=== PATIENT | female | born 1935 | race Caucasian/White ===

== ENCOUNTER 2024-09-06 11:02 | Emergency (ER) | payer MEDICARE, SELFPAY ==
[2024-09-06 11:15] VITALS: BP 124/76; PULSE 61; RESP 16; TEMP 36.4; O2SAT 97; BMI 22.0
--- NOTE | 2024-09-06 11:29 | W.ED.RECABL ---
HPI - Recheck/Abnormal Lab/Rx General: Chief Complaint: Recheck/Abnormal Lab/Rx Stated Complaint: dr sent for inr, medication refill Time Seen by Provider: 09/06/24 11:05 Source: patient Mode of arrival: ambulatory Limitations: no limitations History of Present Illness: 89-year-old female here to have her INR checked states she is visiting from [place] needs to have her INR checked she has not had it checked in 2 weeks and her doctor wanted to come to the ER. She is on Coumadin she has no bleeding complaints has no other complaints this time Related Data Home Medications ?Medication ?Instructions ?Recorded ?Confirmed diltiazem HCl 180 mg capsule,24 180 mg PO QPM 09/06/24 09/06/24 hr,extended release donepezil 5 mg tablet 5 mg PO QPM 09/06/24 09/06/24 warfarin 2 mg tablet See Rx Instructions .Route .COMPLEX 09/06/24 09/06/24 warfarin 4 mg tablet See Rx Instructions .Route .COMPLEX 09/06/24 09/06/24 Allergies Allergy/AdvReac Type Severity Reaction Status Date / Time Penicillins Allergy ALGY-Anaphy Verified 09/06/24 11:17 laxis Review of Systems Const: Denies: fever(s), chills, body aches or change in appetite ENMT: Denies: throat pain or dental pain Card: Denies: chest pain Resp: Denies: dyspnea GI: Denies: abdominal pain, nausea, vomiting or diarrhea Musc: Denies: neck pain or back pain Skin/Breast: Denies: rash Neuro: Denies: headache(s) Physical Exam Const: COMMON NORMALS: no acute distress, patient oriented x3 and healthy appearing HENMT: COMMON NORMALS: normocephalic and atraumatic HEAD & SCALP: normocephalic and atraumatic Eye: COMMON NORMALS: conjunctivae normal CONJUNCTIVA: Yes conjunctivae normal Neck/C-Spine: COMMON NORMALS: full ROM and supple Chest: COMMONS NORMALS: normal inspection of the chest Resp: COMMON NORMALS: normal respiratory effort, No retractions, No use of accessory muscles and clear to auscultation bilaterally AUSCULTATION: clear to auscultation bilaterally Cardio: COMMON NORMALS: regular rate, regular rhythm and No murmurs present (Cardio) RATE: regular rate RHYTHM: regular rhythm GI: COMMON NORMALS: Normal to inspection, nondistended, normoactive bowel sounds present, Soft to palpation, non-tender and no masses PALPATION: Yes Soft to palpation Extremity: COMMON NORMALS: normal to inspection and full ROM Neuro: COMMON NORMALS: patient oriented x3, moves all extremities and no focal motor deficits Psych: COMMON NORMALS: mental status grossly normal, Normal thought process present and cooperative THOUGHT PROCESS: Normal thought process present Skin: COMMON NORMALS: no rashes or lesions noted and no wounds GENERAL SKIN EXAM: no rashes or lesions noted Course Vital Signs: Vital signs: Vital Signs Temperature 97.6 F 09/06/24 11:15 Pulse Rate 61 09/06/24 11:15 Respiratory Rate 16 09/06/24 11:15 Blood Pressure 124/76 09/06/24 11:15 Pulse Oximetry 97 09/06/24 11:15 Oxygen Delivery Me thod Room Air 09/06/24 11:15 MDM - Recheck/Abnormal Lab/Rx Medical Decision Making Patient presents for needing her INR checked she had no other complaints she is stable for discharge follow-up PCP return if worsening. Medical Records I reviewed the patient's medical records. Lab Data I reviewed the patient's lab results. Laboratory Results PT 24.20 SECONDS (12.1-14.9) H 09/06/24 11:35 INR 2.03 (0.8-1.2) H 09/06/24 11:35 No radiology studies performed this visit Discharge Plan Discharge Patient Disposition: Home Clinical Impression: Adult wellness visit Condition: Stable Prescriptions: No Action donepezil 5 mg tablet 5 mg PO QPM diltiazem HCl 180 mg capsule,extended release 24 hr 180 mg PO QPM warfarin 4 mg tablet See Rx Instructions .ROUTE .COMPLEX Rx Instructions: TAKE 1 TABLET BY MOUTH , FRI, FRI, SAT, AND SUN warfarin 2 mg tablet See Rx Instructions .ROUTE .COMPLEX Rx Instructions: TAKE 1 TABLET BY MOUTH EVERY FRIDAY AND EVERY FRIDAY Discharge Orders: Discharge ED (Routine); Ordered 09/06/24 Ordered By: Malinda Covington Discharge Diet: Advance as tolerated Discharge Activity: Resume usual activity Patient Instructions: Warfarin (By mouth) Print Language: Arabic Coding Level of Care Code ED 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
[2024-09-06 11:56] LABS: INR 2.03 (0.8-1.2)
[2024-09-06 12:32] VITALS: BP 120/82; PULSE 72; O2SAT 99
== END 2024-09-06 12:33 | disposition home or self-care (01) ==
PROVIDERS: Emergency Provider Emergency Medicine
DX: Z00.00 Encounter for general adult medical examination without abnormal findings (principal); Z79.01 Long term (current) use of anticoagulants
CPT/HCPCS: 36415; 85610; 99283

== ENCOUNTER 2024-09-20 13:01 | Outpatient (CLI) | payer MEDICARE, SELFPAY ==
[2024-09-20 14:36] LABS: INR 1.97 (0.8-1.2)
== END 2024-09-20 13:02 | disposition home or self-care (01) ==
LOC: LAB 13:07
DX: I48.91 Unspecified atrial fibrillation (principal)
CPT/HCPCS: 36415; 85610

== ENCOUNTER 2024-10-04 11:14 | Outpatient (CLI) | payer MEDICARE, SELFPAY ==
[2024-10-04 12:12] LABS: INR 2.28 (0.8-1.2)
== END 2024-10-04 11:15 | disposition home or self-care (01) ==
DX: I48.91 Unspecified atrial fibrillation (principal)
CPT/HCPCS: 36415; 85610